=== PATIENT | male | born 1935 | race Caucasian/White ===

== ENCOUNTER 2017-04-28 14:48 | Emergency (ER) | payer MEDICARE, OTHER ==
[~2017-04-28] VITALS: Ht 167.6 cm; Wt 97.1 kg
[~2017-04-28 14:48] MED LIST: ACETAMINOPHEN-1 EAC1 PO; ACID CONTROL20 MG PO; ADVAIR 100-501 EACH INH; ADVAIR 250-501 EACH; AGGRENOX 25 MG1 EACH; AGGRENOX 25 MG1 EACH PO; AGGRENOX CAPSU1 EACH PO; ALBUTEROL2.5 MG/0.5; ALEVE220 M1; ALEVE220 M1 PO; ALLOPURINOL 10100 M1 PO; AMLODIPINE BESY10 MG PO; AMLODIPINE BESYL5 MG PO; APAP500 PO; ASPIR 8181 MG PO; ASPIRIN325 PO; AUGMENTIN 500-1 EACH PO; AUGMENTIN 875-1 EACH PO; AUGMENTIN 875875 M1 PO; AUGMENTIN 875875 MG PO; AZITHROMYCIN 2250 MG PO; BACTRIM DS TAB1 EACH PO; BISACODYL SUPP10 MG RECTAL; COLACE 100 MG100 MG PO; COLACE100 MG PO; COUMADIN 3 MG TA3 M1 PO; COUMADIN 4 MG TA4 M1 PO; DALIRESP500 MCG PO; DIABETA 5MG TABL5 MG; DIABETA 5MG TABL5 MG PO; DOXYCYCLINE 10100 MG PO; DUONEB 2.5-0.5 M3 ML; DUONEB 2.5-0.5 M3 ML INH; ELIQUIS2.5 MG PO; ENOXAPARIN80 MG/0.1 SUBQ; FAMOTIDINE 20 M20 MG PO; FAMOTIDINE PO; FAMOTIDINE20 MG PO; GABAPENTIN 100100 MG PO; GLYBURIDE 5 MG T5 M1 PO; HUMALOG100 UNIT/1 SUBQ; HYDROCODON-ACE1 EAC7 PO; HYDROCODONE-AP1 EAC6 PO; IBUPROFEN 800800 M1 PO; K-DUR 20 MEQ T20 MEQ PO; KEFLEX250 M1 PO; KEFLEX250 MG PO; KEFLEX500 M1 PO; KEFLEX500 MG PO; KETOCONAZOLE60 GM TP; LANTUS; LANTUSSOLASTAR SUBQ; LASIX 20 MG TAB20 MG PO; LEVAQUIN 250 M250 MG PO; LEVAQUIN 500 M500 M2 PO; LEVAQUIN 750 M750 MG PO; LEVEMIR SUBQ; LISINOPRIL10 MG PO; LOPERAMIDE 2 MG2 M1 PO; LOPRESSOR100 M1 PO; LOPRESSOR50 MG PO; LOPRESSOR50 PO; MEDROLDOSEPACK PO; MICARDIS40 MG; MICARDIS40 MG PO; MINOCIN100 MG; MINOCIN100 MG PO; MINOCYCLINE HC100 MG PO; MOBIC7.5 MG PO; MUCINEX600 MG PO; NITROGLYCERIN0.4 MG SUBLING; NORCO 5-325 TA1 EACH PO; NORVASC 5 MG TAB5 MG PO; NORVASC5 MG PO; NOVOLOG100 UNIT/1 SUBQ; ONDANSETRON HCL4 M2 PO; PEPCID AC20 M1; PEPCID20 MG PO; PLAVIX 75 MG TA75 M1 PO; PRAVACHOL40 MG PO; PREDNISONE 10 M10 M1 PO; PREDNISONE 10 M10 MG; PREDNISONE 10 M10 MG PO; PREDNISONE 20 M20 M1 PO; PREDNISONE 20 M20 MG PO; PROBIOTIC1 EAC1 PO; PROTONIX40 M1 PO; REQUIP 1 MG TABL1 M1 PO; ROBAXIN 750 MG750 M1 PO; SECURA ANTIFUNG57 GM TP; SERTRALINE HCL50 MG PO; SIMVASTATIN40 MG PO; SINGULAIR 10 MG10 M1 PO; TYLENOL325 MG PO; ZETIA10 MG PO; ZOCOR40 MG PO; ZOFRAN ODT4 MG PO; ZOLOFT 50 MG TA50 M1 PO; ZOLOFT50 MG PO; ZPAK PO; [UNRECOGNIZED DRUG - SUPPLY] MC
[2017-04-28 15:25] LABS: URINE BILIRUBIN NEGATIVE (Negative); URINE BLOOD TRACE (Negative); URINE CLARITY CLEAR; URINE COLOR YELLOW; URINE GLUCOSE-RANDOM TRACE (Negative); URINE KETONES NEGATIVE (Negative); URINE LEUKOCYTES-REFLEX NEGATIVE (Negative); URINE NITRITE-REFLEX NEGATIVE (Negative); URINE PROTEIN 2+ (Negative); URINE SPECIFIC GRAVITY 1.025 (1.005-1.030); URINE UROBILINOGEN 0.2 E.U./dl (0.2-1.0)
[2017-04-28 15:33] LABS: HEMATOCRIT 32.1 % (42.0-52.0); MCH 20.1 pg (26.0-34.0); MCHC 31.1 g/dL (28.0-37.0); MCV 64.7 fL (80.0-100.0); MPV 8.6 fl. (7.2-11.1); NUCLEATED RBCS 0 /100WBC; PLATELET COUNT* 227 thou/uL (150-400); RBC 4.96 mil/uL (4.50-6.00); RDW-CV 21.1 % (10.5-14.5); WBC 9.7 thou/uL (4.0-11.0)
[2017-04-28 15:33] LABS: SQUAMOUS 4-10 Moderate /LPF (0-3)
[2017-04-28 15:34] LABS: BACTERIA-REFLEX None Seen /HPF (None Seen); CASTS None Seen /LPF (None Seen); CRYSTALS None Seen /LPF (None Seen); MUCUS 4-6 Moderate strn/LPF (None Seen); URINE RBC None Seen /HPF (0-2); URINE WBC-REFLEX None Seen /HPF (0-5)
[2017-04-28 15:40] LABS: ANION GAP 11 mmol/L (7-16); BUN 31 mg/dL (7-18); CALCIUM 8.4 mg/dL (8.5-10.1); CHLORIDE 108 mmol/L (98-107); CO2 24 mmol/L (21-32); CREATININE 1.6 mg/dL (0.6-1.3); GLUCOSE 349 mg/dL (70-99); SODIUM 143 mmol/L (136-145)
[2017-04-28 15:52] LABS: ABSOLUTE LYMPHOCYTES 0.6 thou/uL (0.8-5.3); ABSOLUTE MONOCYTES 0.2 thou/uL (0.0-1.2); ABSOLUTE NEUTROPHILS 8.9 thou/uL (1.6-8.1); ALBUMIN 2.9 g/dL (3.4-5.0); ALKALINE PHOSPHATASE 75 U/L (46-116); ANISOCYTOSIS 2+; ATYPICAL LYMPHS 2 %; HYPOCHROMASIA 2+; MICROCYTES 2+; NT-PRO BRAIN NAT PEPTIDE 4227 pg/mL (<300); PLATELET ESTIMATE ADEQUATE; SGOT 12 U/L (15-37); SGPT 22 U/L (30-65); TOTAL BILIRUBIN 0.3 mg/dL (<0.1-1.0); TOTAL PROTEIN 6.3 g/dL (6.4-8.2); TROPONIN-I LEVEL <0.06 ng/mL (<0.06)
[2017-04-28 17:06] VITALS: BP 131/56
--- NOTE | 2017-04-29 13:11 | EKG ---
[place] [address] ELECTROCARDIOGRAM REPORT Name: VERONA WILLSON [id number] Admission: 04/28/17 Attend Phys: Discharge: 04/28/17 Date of : 31 Report #: [id number] THIS REPORT FOR: //name// [facility] ED Test Date: 2017-04-28 Test Time: 15:28:31 Pat Name: VERONA WILLSON Department: Room: Gender: M Pollution Control Technician: DIONNE : 1935 Requested By: Shanna Hope Order Number: [id number] MD: Donell Medeiros Measurements Intervals [place] Rate: 93 P: 50 FL: 165 QRS: -27 QRSD: 91 T: 83 QT: 405 QTc: 504 Interpretive Statements Sinus rhythm Borderline left axis deviation Borderline repolarization abnormality Prolonged QT interval Compared to ECG 03/30/2017 13:46:38 ST (T wave) deviation no longer present Electronically Signed On 04-29-2017 13:11:36 ENGINEERING PROJECT MANAGER by Donell Medeiros [email or web address] <ELECTRONICALLY SIGNED> By: Donell Medeiros MD, [facility] 04/29/17 1311 1528 1528 Donell Medeiros MD, [facility] /EPI
== END 2017-04-28 17:00 | disposition home or self-care (01) ==
LOC: M.ERS 14:48
PROVIDERS: Personal Emergency Response Attendant
DX: J44.9 Chronic obstructive pulmonary disease, unspecified (principal); E11.51 Type 2 diabetes mellitus with diabetic peripheral angiopathy without gangrene; I25.10 Atherosclerotic heart disease of native coronary artery without angina pectoris; E11.9 Type 2 diabetes mellitus without complications; I10 Essential (primary) hypertension; I48.91 Unspecified atrial fibrillation; F17.210 Nicotine dependence, cigarettes, uncomplicated; Z86.73 Personal history of transient ischemic attack (TIA), and cerebral infarction without residual deficits; Z86.718 Personal history of other venous thrombosis and embolism; Z79.4 Long term (current) use of insulin; Z88.1 Allergy status to other antibiotic agents; Z88.6 Allergy status to analgesic agent

== ENCOUNTER 2017-05-22 14:49 | Inpatient (IN) | payer MEDICARE, OTHER ==
[~2017-05-22] VITALS: Ht 167.6 cm; Wt 111.2 kg
[2017-05-22 14:50] VITALS: BP 130/56
[2017-05-22 15:24] LABS: HEMATOCRIT 34.3 % (42.0-52.0); HEMOGLOBIN 10.5 gm/dL (14.0-18.0); MCH 19.4 pg (26.0-34.0); MCHC 30.6 g/dL (28.0-37.0); MCV 63.4 fL (80.0-100.0); MPV 8.6 fl. (7.2-11.1); NUCLEATED RBCS 0 /100WBC; PLATELET COUNT* 210 thou/uL (150-400); RBC 5.41 mil/uL (4.50-6.00); WBC 9.8 thou/uL (4.0-11.0)
[2017-05-22 15:32] LABS: APTT 27.8 Seconds (25.0-31.3); INR 1.1; PROTIME 10.6 Seconds (9.20-11.50)
[2017-05-22 15:34] LABS: CALCIUM 8.4 mg/dL (8.5-10.1); CREATININE 1.7 mg/dL (0.6-1.3); POTASSIUM 4.2 mmol/L (3.5-5.1)
[2017-05-22 15:46] LABS: ABSOLUTE BASOPHILS 0.1 thou/uL (0.0-0.2); ABSOLUTE LYMPHOCYTES 0.3 thou/uL (0.8-5.3); ABSOLUTE MONOCYTES 0.5 thou/uL (0.0-1.2); ABSOLUTE NEUTROPHILS 8.9 thou/uL (1.6-8.1); PLATELET ESTIMATE ADEQUATE
[2017-05-22 15:47] LABS: ANISOCYTOSIS 2+; HYPOCHROMASIA 3+; MICROCYTES 3+
[2017-05-22 15:48] LABS: MAGNESIUM 1.6 mg/dL (1.8-2.4); TOTAL BILIRUBIN 0.3 mg/dL (<0.1-1.0); TOTAL PROTEIN 6.7 g/dL (6.4-8.2); TROPONIN-I LEVEL 0.08 ng/mL (<0.06)
[2017-05-22 15:49] LABS: OVALOCYTES Occasional
--- NOTE | 2017-05-22 16:29 | EKG ---
[place] [address] ELECTROCARDIOGRAM REPORT Name: VERONA WILLSON Room: [facility]#: [id number] Admission: 05/22/17 Attend Phys: Discharge: Date of : 31 Report #: [id number] THIS REPORT FOR: //name// [facility] ED Test Date: 2017-05-22 Test Time: 14:58:36 Pat Name: VERONA WILLSON Department: Room: Gender: Cloud Software Engineer: Yoanna LOWRY : 1935 Requested By: Zenon Cheung Order Number: [id number] MD: Juan Hastings Measurements Intervals [place] Rate: 104 P: 65 DE: 161 QRS: -25 QRSD: 95 T: 100 QT: 366 QTc: 482 Interpretive Statements Sinus tachycardia Multiple ventricular premature complexes Borderline left axis deviation Borderline repolarization abnormality Borderline prolonged QT interval Compared to ECG 04/28/2017 15:28:31 Ventricular premature complex(es) now present Sinus rhythm no longer present Electronically Signed On 05-22-2017 16:28:57 SUPERVISOR VAT HOUSE by Juan Hastings [email or web address] <ELECTRONICALLY SIGNED> By: Juan Hastings MD, [facility] 05/22/17 1628 1458 1458 Juan Hastings MD, [facility] /EPI
--- NOTE | 2017-05-22 18:14 | NUR ---
PROVIDER MADE AWARE OF SKIN TEAR ON R FOREARM. EVALUATED SKIN TEAR AND SPOKE WITH PT AND FAMILY. APPAREL CUTTER OCTAVIO Dacosta MADE AWARE OF FAMILY'S CONCERNS AND SPOKE WITH FAMILY.
[2017-05-22 18:34] VITALS: BP 145/63
[2017-05-22 18:38] VITALS: BP 130/79
[2017-05-22 20:00] VITALS: BP 145/63; BP 82/40
[2017-05-23] VITALS (18 sets, daily range): BP systolic 75–143; BP diastolic 37–68
--- NOTE | 2017-05-23 03:38 | NUR ---
PATIENT RESTING WITHOUT COMPLAINTS. CONT. 02 PER NC, VSS, ABX WITHOUT ADVERSE REACTION NOTED. WILL CONT. TO MONITOR RESP STATUS. NO SIGNS OF PAIN OR DISCOMFORT. BED IN LOW POSITION, CALL LIGHT WITHIN REACH. BED ALARM ON, CONT. WITH PLAN OF CARE AT THIS TIME.
--- NOTE | 2017-05-23 08:00 | NUR ---
AM ASSESSMENT COMPLETED REFER TO COMPUTER CHARTING. VALVE SEATER OPERATOR TRACKING SR. PATIENT RESTING IN BED REPORTING NO PAIN, NAUSEA AT THAT TIME. BED IN LOW AND LOCKED POSITION. CALL LIGHT WITHIN REACH. IV ANTIBIOTIC INFUSING. PATIENT ON 2 LITERS VIA NASAL CANNULA WITH O2 SATS READING 95%. AT 1000 THIS NURSE WAS TALKING TO DAUGHTER OF PATIENT ON THE PHONE AND LOOKED AT VALVE SEATER OPERATOR WHEN THEY STARTED TO ALARM AND WENT INTO PATIENT ROOM. CODE BLUE ACTIVATED AND DR GODWIN ON UNIT. POST CODE PATIENT TRANSFERED TO ROOM 04 IN ICU, REPORT CALLED TO ANTONIETTA WILKINS.
[2017-05-23 10:29] LABS: BE -9.9 mmol/L (-2 to +3); PO2 93.2 mmHg (75.0-100.0)
[2017-05-23 10:37] LABS: PCO2 130.8 mmHg (35.0-45.0)
[2017-05-23 10:47] LABS: HEMATOCRIT 39.3 % (42.0-52.0); HEMOGLOBIN 10.7 gm/dL (14.0-18.0); MCH 19.2 pg (26.0-34.0); MCHC 27.3 g/dL (28.0-37.0); RBC 5.56 mil/uL (4.50-6.00); RDW-CV 21.6 % (10.5-14.5)
[2017-05-23 10:48] LABS: MCV 70.6 fL (80.0-100.0)
[2017-05-23 10:59] LABS: CALCIUM 8.5 mg/dL (8.5-10.1); CREATININE 2.7 mg/dL (0.6-1.3); POTASSIUM 4.4 mmol/L (3.5-5.1)
[2017-05-23 11:02] LABS: ALBUMIN 2.5 g/dL (3.4-5.0); TOTAL BILIRUBIN 0.2 mg/dL (<0.1-1.0); TOTAL PROTEIN 5.8 g/dL (6.4-8.2); TROPONIN-I LEVEL 0.14 ng/mL (<0.06)
[2017-05-23 11:56] LABS: BE -7.6 mmol/L (-2 to +3); HCO3 18.9 mmol/L (22.0-26.0); PCO2 42.2 mmHg (35.0-45.0)
[2017-05-23 12:16] LABS: PO2 225.8 mmHg (75.0-100.0); pH 7.268 (7.340-7.450)
--- NOTE | 2017-05-23 14:20 | NUR ---
PATIENT TRANSFERED TO ROOM 004 FROM TELE POST CODE. UPON ARRIVING EKG COMPLETED AND RESULTED A-FIB WITH A TACHY RATE. NON-RESPONSIVE AND INTUBATED. FENTANYL AND VERSED GTT ADDED PATIENT WAS MAKING JERKING MOVEMENTS AND FIGHTING THE VENTILATOR. BICARB IN D5W AND INSULIN GTT IN PLACE PER DR GODWIN, CVP AND 2 MORE LITER BOLUSES ON BOARD FOR SEPSIS PROTOCOL. LACTIC SENT AND RESULTED 7.4. COMMUNICATED TO DR HILLIARD, WHO IS ON THE FLOOR. UA SENT AND IS PENDING. ABLE TO TITRATE FIO2 FROM %80 TO %[address] HILLIARD HAVING THOUROUGH DISCUSSION WITH PATIENT'S DAUGHTER. SHE WANTED TO MAKE SURE PATIENT HAD DNR PAPERWORK IN THE CHART. WHEN ASKED IF SHE WOULD LIKE HIM TO BE FULL CODE AT THIS TIME, SHE DECIDED TO KEEP FULL CODE. WILL CONTINUE WITH CURRENT PLAN OF CARE.
[2017-05-23 14:28] LABS: URINE BILIRUBIN NEGATIVE (Negative); URINE BLOOD 2+ (Negative); URINE CLARITY SL CLOUDY; URINE COLOR YELLOW; URINE GLUCOSE-RANDOM 2+ (Negative); URINE KETONES NEGATIVE (Negative); URINE LEUKOCYTES-REFLEX NEGATIVE (Negative); URINE NITRITE-REFLEX NEGATIVE (Negative); URINE PROTEIN 3+ (Negative); URINE SPECIFIC GRAVITY 1.025 (1.005-1.030); URINE UROBILINOGEN 0.2 E.U./dl (0.2-1.0)
[2017-05-23 14:39] LABS: AMORPHOUS URATES Many /LPF (None Seen); BACTERIA-REFLEX 1-9 Few /HPF (None Seen); HYALINE CASTS 0-3 Few /LPF (None Seen); SQUAMOUS NONE SEEN /LPF (0-3); URINE RBC 3-10 Few /HPF (0-2); URINE WBC-REFLEX None Seen /HPF (0-5)
--- NOTE | 2017-05-23 15:21 | NUR ---
PT ADMITTED YESTERDAY, CODED THIS MORNING AND IS NOW IN ICU ON VENT. ASKED TO COME TALK TO DTR SHE IS UPSET THAT PT WAS NOT A DNR, HE HAS BEEN IN PAST ADMISSIONS. SPOKE WITH DR. GODWIN, HE SAID HE SPOKE WITH THE DTR TWICE THIS MORNING DURING THE CODE AND SHE NEVER TOLD HIM TO STOP THE CODE, THAT THE PT WANTED TO BE A DNR. SPOKE WITH DTRosalinda BOSWELL AT BEDSIDE. SHE SAID WHEN PT COMPLETED HIS ADVANCE DIRECTIVE YEARS AGO, SHE WAS TOLD IT WOULD ALWAYS BE HERE ON HIS CHART AND SHE DOESN'T UNDERSTAND WHY THE PT WASN'T A DNR THIS ADMISSION. EXPLAINED THAT AN ADVANCE DIRECTIVE IS NOT A DNR ORDER, THE FORM OUTLINES WHAT THE PTS WISHES ARE, BUT IT TAKES A PHYSICIAN ORDER EACH AND EVERY ADMISSION FOR A CODE STATUS. SHE SAID WITH PREVIOUS ADMISSIONS, 'THEY COME PUT THAT PURPLE ARMBAND ON THAT HE IS A DNR, I DIDN'T REALIZE IT HADN'T HAPPENED THIS TIME.' SHE SAID HER BROTHER WAS HERE EARLIER, THEY HAVE TALKED AND FOR NOW THEY WANT PT TO BE A FULL CODE. ' LONG WE HAVE STARTED THIS, WE NEED TO SEE WHAT HAPPENS.' ASKED HER TWICE MORE DURING THE DISCUSSION IF THEY WANTED THEIR FATHER TO BE A FULL CODE-- OR TO CONTINUE ALL OF WHAT IS BEING DONE BUT HAVE HIM BE A DNR. SHE SAID EACH TIME THEY WANT HIM TO BE A FULL CODE AND THEY WANT EVERYTHING DONE. I TOLD HER IF AT ANYTIME THE FAMILY CHANGED THEIR MIND, THE NURSES OR DOCTOR WOULD BE GLAD TO TALK TO THEM. YU HAS A COPY OF THE ADVANCE DIRECTIVE WITH HER AND IS AWARE THAT HER BROTHER JERSON IS THE DPOA. UPDATED NURSE AFTER MY DISCUSSION WITH YU.
--- NOTE | 2017-05-23 16:16 | NUR ---
PATIENT LACTIC NOW 4.3. IMPROVED FROM LAST DRAW. DR HILLIARD NOTIFIED.
--- NOTE | 2017-05-23 17:21 | 2DMMODE ---
[place] [address] 2 D/M-MODE ECHOCARDIOGRAM Name: VERONA WILLSON Room: [address] IN [facility]#: [id number] Admission: 05/22/17 Attend Phys: Mark Anthony Orozco Discharge: Date of : 31 Date of Service: 05/23/17 1721 Report #: [id number] THIS REPORT FOR: //name// APPROVED REPORT Study performed: 05/23/2017 14:41:38 EXAM: Comprehensive 2D, Doppler, and color-flow Echocardiogram Patient Location: In-Patient Room #: [facility] Status: routine BSA: 2.11 HR: 98 bpm BP: 107/47 mmHg Rhythm: NSR Other Information Study Quality: Good Indications Congestive Heart Failure 2D Dimensions LVEF(%): 71.58 (>50%) IVSd: 13.68 (7-11mm) LVOT Diam: 18.34 (18-24mm) LVDd: 46.56 mm PWd: 11.16 (7-11mm) Ascending Ao: 37.13 (22-36mm) LVDs: 27.58 (25-40mm) Aortic Root: 35.18 mm Lazcano's LVEF: 71.58 % Volumes Left Atrial Volume (Systole) LA ESV Index: 29.60 mL/m2 Aortic Valve AoV Peak Marck.: 2.57 m/s AO Peak Gr.: 26.35 mmHg LVOT Max P.17 mmHg AO Mean Gr.: 14.97 mmHg LVOT Mean P.51 mmHg LVOT Max V: 1.14 m/s AO V2 VTI: 49.31 cm LVOT Mean V: 0.72 m/s KITTY (VTI): 1.17 cm2 LVOT V1 VTI: 21.83 cm Mitral Valve E/A Ratio: 0.92 [place] [address] 2 D/M-MODE ECHOCARDIOGRAM Name: VERONA WILLSON Room: [address] IN .R.#: [id number] Admission: 05/22/17 Attend Phys: Mark Anthony Orozco Discharge: Date of : 31 Date of Service: 05/23/17 1721 Report #: [id number] MV Decel. Time: 180.30 ms MV E Max Marck.: 1.23 m/s MV PHT: 52.29 ms MVA (PHT): 4.21 cm2 TDI E/Lateral E': 12.30 E/Medial E': 20.50 Medial E' Marck.: 0.06 m/s Lateral E' Marck.: 0.10 m/s Pulmonary Valve PV Peak Marck.: 1.13 m/s PV Peak Gr.: 5.14 mmHg Left Ventricle The left ventricle is normal size. There is normal LV segmental wall motion. Mild concentric left ventricular hypertrophy. Left ventricular systolic function is normal. LVEF is 55-60%. Grade I - abnormal relaxation pattern. Right Ventricle Right ventricle is mildly dilated. The right ventricular systolic function is normal. Atria Left atrium is mildly dilated. Right atrium is mildly dilated. Aortic Valve Moderate aortic valve sclerosis. No aortic regurgitation is present. Moderate aortic stenosis. Mitral Valve There is mitral annular calcification. There is no mitral valve regurgitation noted. No evidence of mitral valve stenosis. Tricuspid Valve The tricuspid valve is not well visualized. Unable to assess PA pressure. Trace tricuspid regurgitation. Pulmonic Valve Pulmonic valve is not well visualized. Mild pulmonic regurgitation. Great Vessels The aortic root is normal in size. IVC is normal in size and collapses with >50% [place] [address] 2 D/M-MODE ECHOCARDIOGRAM Name: VERONA WILLSON Room: [address]#: [id number] Admission: 05/22/17 Attend Phys: Mark Anthony Orozco Discharge: Date of : 31 Date of Service: 05/23/17 1721 Report #: [id number] Pericardium There is no pericardial effusion. <Conclusion> The left ventricle is normal size. Mild concentric left ventricular hypertrophy. Left ventricular systolic function is normal. LVEF is 55-60%. Grade I - abnormal relaxation pattern. Right ventricle is mildly dilated. Left atrium is mildly dilated. Right atrium is mildly dilated. Moderate aortic valve sclerosis. Moderate aortic stenosis. There is mitral annular calcification. Mild pulmonic regurgitation. <ELECTRONICALLY SIGNED> By: Juan Hastings MD, [facility]ACC 05/23/171720 20 20 Juan Hastings MD, FACC /INF
--- NOTE | 2017-05-23 17:25 | NUR ---
PATIENT PROGRESSING TOWARDS GOALS. TITRATED OFF LEVOPHED AT 1650. REMAINS SEDATED ON VENTILATOR WITH VERSED AT 12 ML/HR (6MG/HR) AND FENTANYL AT 2.5 ML/HR (25 MCG/HR). ATTEMPTED TO TITRATE OFF SEDATION BRIEFLY, BUT PATIENT RESPIRATIONS INCREASED TO 40S. PATIENT NOW TRACING NSR IN HIGH 90S. DAUGHTER AND SON PRESENT AT TIMES, HAVE LEFT FOR THE NIGHT. LEAVING PATIENT FULL CODE FOR NOW AND WILL REASSESS TOMORROW.
[2017-05-23 18:18] LABS: CALCIUM 7.4 mg/dL (8.5-10.1); CREATININE 2.6 mg/dL (0.6-1.3); POTASSIUM 3.6 mmol/L (3.5-5.1)
--- NOTE | 2017-05-23 23:38 | NUR ---
RHTYHM CHANGE NOTED ON COVERING AND LINING SUPERVISOR, EKG OBTAINED SHOWING SINUS RHYTHM WITH MULTIPLE ATRIAL AND VENTRICULAR ECTOPIC BEATS. NO ADVANCED HEART BLOCK DETECTED. RADIAL PULSE 2+. PTS RATE NOW RETURNED TO REGULAR SINUS RHYTHM.
[2017-05-24] VITALS (21 sets, daily range): BP systolic 105–146; BP diastolic 43–76
[2017-05-24 04:57] LABS: HEMATOCRIT 28.1 % (42.0-52.0); MCH 19.4 pg (26.0-34.0); MCHC 30.7 g/dL (28.0-37.0); MPV 8.5 fl. (7.2-11.1); RBC 4.46 mil/uL (4.50-6.00); RDW-CV 20.9 % (10.5-14.5); WBC 10.2 thou/uL (4.0-11.0)
[2017-05-24 05:07] LABS: ALBUMIN 2.1 g/dL (3.4-5.0); CALCIUM 7.4 mg/dL (8.5-10.1); CREATININE 3.1 mg/dL (0.6-1.3); POTASSIUM 3.4 mmol/L (3.5-5.1); TOTAL BILIRUBIN 0.2 mg/dL (<0.1-1.0); TOTAL PROTEIN 4.8 g/dL (6.4-8.2)
[2017-05-24 05:24] LABS: HEMOGLOBIN 8.6 gm/dL (14.0-18.0); MCV 63.2 fL (80.0-100.0)
--- NOTE | 2017-05-24 07:30 | NUR ---
PT REMAINS SEDATED ON VENTILATOR. VSS WITHOUT PRESSORS. O2 SAT HAS REMAINED >95%. INSULIN GTT TITRATED ORDERED, HOURLY BG HAS REMAINED 95-115. POTASSIUM LEVEL 3.4 THIS AM, RESULT CALLED TO DR HILLIARD AND ORDERS RECEIVED FOR ELECTROLYTE REPLACEMENT PROTOCOL AND TO INCREASE IVF RATE TO 175ML/HR. DR HILLIARD INFORMED THAT PTS BG HAS NORMALIZED, HE STATED HE WILL ADDRESS WHETHER TO CONTINUE WITH INSULIN GTT OR CHANGE TO PTS HOME SUBQ INSULIN REGIMEN WHEN HE ARRIVES TO THE UNIT THIS AM. COMPLETE BED BATH GIVEN. SKIN TEAR TO RIGHT FOREARM AND HEALING BLISTERS TO RIGHT CASIANO PHOTOGRAPHED FOR CHART, WOUNDS CLEANED AND REDRESSED. PT HAS BEEN TURNED Q2HR THROUGHOUT THE SHIFT.
[2017-05-24 07:54] LABS: BE 1.9 mmol/L (-2 to +3); PCO2 38.6 mmHg (35.0-45.0); PO2 82.1 mmHg (75.0-100.0); pH 7.446 (7.340-7.450)
--- NOTE | 2017-05-24 08:00 | NUR ---
INITIAL ASSETMENT COMPLETED. PT REMAINS SEDATED ON VENT. INSULIN GTT REMIANS IN USE.SON IN ROOM UPDATED ON CARE PLAN. DR DC IN ROOM. ABG RESULTS OBTAINED AND WITHDR AWARE.
--- NOTE | 2017-05-24 08:30 | CON ---
[address] [address] CONSULTATION Name: VERONA WILLSON Room: [address] IN .R.#: [id number] Admission: 05/22/17 Attend Phys: Fanny Stout Discharge: Date of : 33 Report #: [id number] THIS REPORT FOR: //name// CC: Anjel Orozco REASON FOR CONSULTATION: Acute respiratory failure. HISTORY OF PRESENT ILLNESS: The patient is an 82-year-old male patient with history of COPD, on 2 L oxygen per his daughter. He was admitted to the hospital on 05/22/2017 with chief complaints of shortness of breath of 3 weeks' duration associated with cough, congestion and dyspnea. Per the daughter, they checked his oxygen at home yesterday. It was in the upper 80s on room air and he was brought into the ER. Also, he had some confusion per the history upon hospitalization and poor oral intake. This morning, he was on 2 L oxygen and some arrhythmia noted in the monitor. When his nurse checked him in the munguia, he was unresponsive and he was in PEA. A code blue was called and resuscitation was started. He was intubated and had a spontaneous circulation and was brought into the ICU. I saw the patient in the ICU. He was intubated already on the ventilator. He is not on any vasopressors, but he is about to start on bicarb drip and insulin drip. His sugar readings were really high. He is not responsive, but he was overbreathing the vent and breathing fast and obviously did not participate in history due to medical condition. REVIEW OF SYSTEMS: Non-obtainable due to the patient's condition. ALLERGIES: NEOMYCIN AND VANCOMYCIN. HOME MEDICATIONS: He is on Zetia, Zoloft, guaifenesin, Lasix, Protonix, allopurinol, Advair, Nitrostat, DuoNeb, pravastatin, Eliquis twice a day, prednisone 10 mg daily, insulin. PAST MEDICAL HISTORY: Chronic respiratory failure, on home oxygen and he is steroid dependent 10 mg daily prednisone with a history of CVA, coronary artery disease, diabetes mellitus, hypertension, and peripheral vascular disease. PAST SURGICAL HISTORY: Includes left forearm amputation from war injury. He had history of interstitial lung disease, COPD, chronic respiratory failure, previous history of DVT and p.r.n. anticoagulation, history of AFib. FAMILY HISTORY: Positive for COPD. SOCIAL HISTORY: He continues to smoke every day. No mention of alcohol [place] [address] CONSULTATION Name: VERONA WILLSON Room: [address] IN [facility]#: [id number] Admission: 05/22/17 Attend Phys: Fanny Stout Discharge: Date of : 31 Report #: [id number] PHYSICAL EXAMINATION: VITAL SIGNS: He was on 80% FIO2, O2 saturation 100%, blood pressure 136/64 off vasopressors, pulse rate of 98, afebrile. GENERAL: Overweight gentleman, lying in bed, intubated, started on fentanyl, unresponsive, but overbreathing the vent. HEENT: Head normocephalic, atraumatic. Pupils reactive to light. Not pale, no jaundice. External ears look healthy any normal. Oral cavity intubated with gastric tube in place. Nasal cavity patent. NECK: Supple. CHEST: Diminished air movement bilaterally, prolonged expiratory phase with wheezes heard bilaterally and some crackles at the bases. No chest deformity. HEART: S1, S2, no murmur. ABDOMEN: Obese, soft, lax, nontender, slightly distended, no masses felt. EXTREMITIES: Lower extremity, trace edema. No signs of DVT, no calf tenderness, but again, he is unresponsive. SKIN: Normal for age and race. MUSCULOSKELETAL: On inspection, he has amputation of the left upper forearm. Otherwise, no abnormalities. PSYCHIATRIC: Mood and affect could not be evaluated. NEUROLOGIC: Unresponsive as mentioned above. LYMPHATICS: No palpable lymph node. LABORATORY DATA: His chest x-ray upon hospitalization relatively stable compared to previous chest x-ray, but showing interstitial lung disease. His chest x-ray post-intubation showed ET tube in good place. His ABGs during the cardiac arrest was 6.9/ /93. On ambu bag, his white blood count was 9.8 yesterday, today is 19, hemoglobin is 10.7 and platelets of 210 today. His creatinine is 2.7, was 1.7 upon hospitalization. His carbon dioxide 22, potassium 4.4. His sugar is more than 500. IMPRESSION: 1. Ivawg-xa-gjrrycq hypoxic and hypercapnic respiratory failure. 2. Chronic obstructive pulmonary disease exacerbation. 3. Interstitial lung disease. 4. Status post cardiac arrest. 5. Active smoker. 6. Hyperglycemia. 7. History of deep venous thrombosis and pulmonary embolism in the past. Daughter was present in the ICU. She confirms and she is very sure that he did not miss a single dose of his anticoagulation at home. He was continued on his anticoagulation at this facility. My suspicion for pulmonary embolus at this point is low given the fact that there are no gaps on him taking his anticoagulation. Unfortunately, we cannot do CT of the chest given the kidney function, but we will do a Doppler ultrasound of the lower extremities. He is [facility] [address] [place] [address] CONSULTATION Name: VERONA WILLSON Room: [address] IN .R.#: [id number] Admission: 05/22/17 Attend Phys: Fanny Stout Discharge: Date of : 33 Report #: [id number] wheezing on exam. I would continue the steroids, continue the antibiotics. He will be on a scheduled nebulization treatment. We will do a repeat chest ABGs at this point. So far on his blood work is mostly respiratory acidosis, his lactic acid is pending and his bicarbonate on the BMP is 22. Depending on his next ABG, we will decide what bicarb drip. It is not clear, but consider cardiac arrest at this point. Cardiology is evaluating the patient at this point and will place him on sedation and once he is more stable, we will turn off the sedation and evaluate his mental status and decide about weaning trials. CONDITION: Critical. PROGNOSIS: Guarded. Thank you for the consult. <ELECTRONICALLY SIGNED> By: Clyde Novak MD 05/24/17 0830 1146 1902Dmathew Johnson MD /nt
--- NOTE | 2017-05-24 10:44 | CON ---
[address] [address] CONSULTATION Name: VERONA WILLSON Room: [address] IN .R.#: [id number] Admission: 05/22/17 Attend Phys: Fanny Stout Discharge: Date of : 31 Report #: [id number] THIS REPORT FOR: //name// CC: Anjel Larissamatthew Mark Anthony Orozco DATE OF SERVICE: 05/23/2017 ATTENDING PHYSICIAN: Mark Anthony Orozco DO. REASON FOR EVALUATION: Aspiration pneumonitis, complicated by respiratory arrest, now on mechanical ventilatory support. HISTORY OF PRESENT ILLNESS: Chart reviewed, the patient examined. This is an 82-year-old gentleman, I am familiar with his extensive medical history, diabetes mellitus has been complicated by vasculopathy including previous strokes, coronary artery disease, peripheral vascular disease, also has some underlying chronic obstructive pulmonary disease, who is frequently admitted, having last seen him in 2016. He was admitted due to some progressive dyspnea with associated cough, notably has 2 liters per O2 at night time. He was encephalopathic as well, has shown some anorexia with poor p.o. intake. He apparently on the floor experienced a cardiopulmonary arrest. He was resuscitated, transferred to the Intensive Care Unit. He is now on mechanical ventilatory support, but not particularly responsive. Chest x-ray shows extensive chronic changes, may well have an acute component as well. He was empirically started on ceftriaxone, levofloxacin and azithromycin. ALLERGIES: NEOMYCIN, VANCOMYCIN. MEDICATIONS: Include levofloxacin, pantoprazole, methylprednisolone, propofol, sertraline, ceftriaxone, atorvastatin, ezetimibe, and azithromycin. PAST MEDICAL HISTORY: Has diabetes mellitus complicated by vasculopathy, known coronary artery disease, previous stroke with right-sided weakness, hypertension, peripheral vascular disease, traumatic amputation of his left hand dates back during service, chronic obstructive pulmonary disease, suspected obstructive sleep apnea, history of DVTs and PE, atrial fibrillation. SOCIAL HISTORY: Does smoke cigarettes. No ethanol. No illicit drug use. FAMILY HISTORY: Noncontributory. REVIEW OF SYSTEMS: Not obtainable. PHYSICAL EXAMINATION: GENERAL: He appears chronically ill, undernourished. [place] [address] CONSULTATION Name: VERONA WILLSON Room: [address]#: [id number] Admission: 05/22/17 Attend Phys: Fanny Stout Discharge: Date of : 33 Report #: [id number] intubated. He is in supine position. VITAL SIGNS: Temperature 99.0, pulse 98, respirations 18, blood pressure is 136/64. SKIN: Warm, dry. NECK: Supple. LUNGS: Scattered coarse breath sounds. HEART: Tachycardic, regular. I do not appreciate a murmur. ABDOMEN: Quite distended, somewhat firm. There is a tympany. GENITOURINARY: Deferred. RECTAL: Deferred. LABORATORY DATA: Most recent ABGs, pH 7.268, pCO2 of 42.2, pO2 of 225.8, satting 88%. Chest x-ray as described above. Electrolytes: Sodium 141, potassium 4.4, chloride 104, bicarbonate is 22, anion gap of 18, BUN and creatinine 32 and 2.7, that is actually up from 2.7, glucose of 595, AST 131, ALT of 124, albumin of 2.5, total protein 5.8, estimated GFR of 23. CBC: White count 19.0, H and H 10.7 and 39.3, platelets of 210. Blood cultures sterile thus far. Troponin is 0.07, repeat was less than 0.06. Lactic acid 1.9. ASSESSMENT: Cardiopulmonary arrest complicated by hypoxemia. I think it is reasonable to continue empiric antimicrobial therapy, presume pneumonitis at this point. Whether there is aspiration component seems possible as well. He remains critically ill. It is difficult to appreciate whether he will have any sort of rapid recovery at this point. Continue efforts to wean down support. <ELECTRONICALLY SIGNED> By: Apolinar Dixon MD 05/24/17 1044 1245 40Josara Dixon MD /nt
--- NOTE | 2017-05-24 11:00 | NUR ---
PT SEDATION VACATION DID NOT GO WELL. PT HEART RATE INCREASED UP TO 120'S WITH RESP RATE UPPER 30'S TO LOW 40'S. SEDATION MEDS RESTATED.
--- NOTE | 2017-05-24 14:29 | EKG ---
[place] [address] ELECTROCARDIOGRAM REPORT Name: VERONA WILLSON Room: [address] ADM IN M.R.#: [id number] Admission: 05/22/17 Attend Phys: Fanny Stout Discharge: Date of : 31 Report #: [id number] THIS REPORT FOR: //name// [facility] Test Date: 2017-05-23 Test Time: 10:37:17 Pat Name: VERONA WILLSON Department: Room: [address] Gender: M Obstetrics Teacher: Janee : 1935 Requested By: Mark Anthony Orozco Order Number: [id number] Reading MD: Jerrod Grimm Measurements Intervals [place] Rate: 108 P: 144 MA: 177 QRS: -85 QRSD: 133 T: 46 QT: 381 QTc: 511 Interpretive Statements atrial fibrillation RBBB and LAFB Borderline ST depression, lateral leads Compared to ECG 05/22/2017 14:58:36 Sinus tachycardia no longer present Ventricular premature complex(es) no longer present Electronically Signed On 05-24-2017 14:28:59 MARKER DELIVERY by Jerrod Grimm [email or web address] <ELECTRONICALLY SIGNED> By: Jerrod Grimm MD, FACC 05/24/17 1428 1037 1037 Jerrod Grimm MD, [facility] /EPI
--- NOTE | 2017-05-24 14:29 | EKG ---
[place] [address] ELECTROCARDIOGRAM REPORT Name: VERONA WILLSON Room: [address] ADM IN M.R.#: [id number] Admission: 05/22/17 Attend Phys: Fanny Stout Discharge: Date of : 31 Report #: [id number] THIS REPORT FOR: //name// [facility] Test Date: 2017-05-23 Test Time: 10:38:54 Pat Name: VERONA WILLSON Department: Room: [address] Gender: M Local Company Truck Driver: Janee : 1935 Requested By: Mark Anthony Orozco Order Number: [id number] Estefani MD: Jerrod Grimm Measurements Intervals [place] Rate: 108 P: NV: QRS: -98 QRSD: 130 T: 19 QT: 382 QTc: 512 Interpretive Statements Atrial fibrillation RBBB and LAFB Electronically Signed On 05-24-2017 14:29:32 HOME THERAPY TEACHER by Jerrod Grimm [email or web address] <ELECTRONICALLY SIGNED> By: Jerrod Grimm MD, [facility] 05/24/17 1429 [facility] 1038 Jerrod Grimm MD, FACC /EPI
--- NOTE | 2017-05-24 14:41 | EKG ---
[place] [address] ELECTROCARDIOGRAM REPORT Name: VERONA WILLSON Room: [address] ADM IN M.R.#: [id number] Admission: 05/22/17 Attend Phys: Fanny Stout Discharge: Date of : 31 Report #: [id number] THIS REPORT FOR: //name// [facility] Test Date: 2017-05-23 Test Time: 23:28:50 Pat Name: VERONA WILLSON Department: Room: [address] Gender: M Principal Software Engineer: Kim SHEA RN : 1935 Requested By: Mark Anthony Orozco Order Number: [id number] Estefani MD: Jerrod Grimm Measurements Intervals [place] Rate: 112 P: 31 VA: 153 QRS: -35 QRSD: 87 T: 162 QT: 379 QTc: 518 Interpretive Statements Sinus arrhythmia Multiple premature complexes, vent & supraven Left axis deviation Abnormal R-wave progression, late transition Nonspecific T abnormalities, lateral leads Prolonged QT interval Electronically Signed On 05-24-2017 14:41:38 GAS REGULATOR REPAIRER HELPER by Jerrod Grimm [email or web address] <ELECTRONICALLY SIGNED> By: Jerrod Grimm MD, [facility] 05/24/17 1441 [id number] Jerrod Grimm MD, [facility] /EPI
--- NOTE | 2017-05-24 14:42 | EKG ---
[place] [address] ELECTROCARDIOGRAM REPORT Name: VERONA WILLSON Room: [address] ADM IN M.R.#: [id number] Admission: 05/22/17 Attend Phys: Fanny Stout Discharge: Date of : 31 Report #: [id number] THIS REPORT FOR: //name// [facility] Test Date: 2017-05-23 Test Time: 23:34:22 Pat Name: VERONA WILLSON Department: Room: [address] Gender: M Laboratory Miller: Kim SHEA RN : 1935 Requested By: Mark Anthony Orozco Order Number: [id number] Estefani MD: Jerrod Grimm Measurements Intervals [place] Rate: 92 P: 3 DE: 110 QRS: -33 QRSD: 87 T: 162 QT: 396 QTc: 490 Interpretive Statements Sinus rhythm Borderline short DE interval Left axis deviation Abnormal R-wave progression, late transition Borderline repolarization abnormality Borderline prolonged QT interval Electronically Signed On 05-24-2017 14:42:31 CURATOR OF MANUSCRIPTS by Jerrod Grimm [email or web address] <ELECTRONICALLY SIGNED> By: Jerrod Grimm MD, [facility] 05/24/17 1442 [id number] Jerrod Grimm MD, [facility] /EPI
--- NOTE | 2017-05-24 15:53 | NUR ---
WOUND NURSE: PATIENT SEEN TO ADDRESS LESIONS NOTED ON RIGHT ANKLE AND FOREARM. PATIENT HAS 2 SMALL BLISTERS MEASURING 1.5 X 1.5 X 0.1 CM, CONTAIN PINK NONGRANULATING TISSUE IN THE WOUND BED, NO ACTIVE DRAINAGE, NO PERIWOUND REDNESS, WARMTH, OR INDURATION. DAUGHTER HERE AND REPORTS HOME HEALTH HAD BEEN USING XEROFORM GAUZE 3X/WEEK. AFFECTED AREA WAS CLEANSED WITH SOAP AND WATER, RINSED WITH WATER, THEN PATTED DRY. APPLIED XEROFORM GAUZE UNDER ABD, WRAPPED WITH KERLEX ROLL GAUE, AND SECURED WITH TAPE. RIGHT FOREARM SKIN TEAR WHICH DAUGHTER REPORTS OCCURED DURING TRANSFER IN THE ED. REMOVED DRESSING TO FIND SKIN TEAR MAINTAINED WITH STERISTRIPS AT TIME OF THIS ASSESSMENT. OPTED TO LEAVE THE STERISTRIPS IN PLACE, THEN CLEANSE WITH SOAP AND WATER, RINSED WITH WATER, THEN PATTED DRY. APPLIED OPTIFOAM GENTLE AG TO WOUND, THEN WRAPPED WITH KERLEX ROLL GAUZE, THEN SECURED WITH TAPE. PATIENT IN ON VENT AND IS NONRESPONSIVE. PATIENT'S SKIN ON RIGHT FOREARM IS VERY THIN AND FRIABLE DUE TO ATROPHY. WOUND EDGES WERE NOT WELL APPROXIMATED AND THERE WAS SMALL TO MODERATE AMOUNT OF SANGUINOUS DRAINAGE ON OLD DRESSING, NO ACTIVE DRAINAGE AT TIME WOUND CARE WAS ADMINISTERED.
[2017-05-24 18:17] LABS: CALCIUM 6.6 mg/dL (8.5-10.1); CREATININE 3.3 mg/dL (0.6-1.3); MAGNESIUM 1.4 mg/dL (1.8-2.4); POTASSIUM 3.9 mmol/L (3.5-5.1)
--- NOTE | 2017-05-24 19:00 | NUR ---
PT REMIANS ON VENT AND SEDATED, TALKED WITH ALTERNATE DPOA ROMEO SON OF PT. AFTER ALSO TALKING WITH CASE MANAGEMENT INSTRUCTED SON THAT WITH EVERY TIME DAD IS ADMITED DNR ORDERS HAVE TO BE WRITTEN BY . WENT READ OVER DPOA ON CHART AND SHOWED ON THE ADVANCE DIRECTIVE DOES NOT STATE DO NOT RESUSCITATE. DAUGHTER IN ROOM STAING THAT FATHER WAS NEVER ASKED IN ER WHAT HIS CODE STATUS WAS AND ALSO STATED THAT ON ADMISSION THAT HE WAS NEVER ASKED EITHER. PT DAUGHTER DOES NOT REMEMBER WHO ADMITTED PT.REINTERATED THAT PER CASE MANAGEMENT THAT FATHER WAS NOT SURE WHAT HE WANTED HIS CODE STATUS TO BE. PT RUBENTER INSISTING THAT DR AND NURSE DID NOT DO THERE JOB. FURTHER IN THE CONVERSATION DAUGHTER STATED THAT SECRETARY BOOKKEEPER WAS WITH FATHER WHEN ADMITTED TO THE ROOM AND ONCE AGAIN WANTED TO NAME OF ADMITTING NURSE. PT DAUGHTER ALSO STATED DR GODWIN KNOWS FATHER AND SHOULD KNOW THAT HE IS A NO CODE.SHE ALSO SAID DR GODWIN DURING THE CODE SAID THAT HEY HE MAY BE A NO CODE WHEN PT WAS BEING CODED. PT DAUGHTER ADMITTED THAT SHE WAS CALLED WHEN FATHER WAS CODING AND TOLD STAFF THAT SHE WOULD BE RIGHT THERE. DAUGHTER ALSO EXPRESSED THAT SHE DID NOT LIKE THAT CASE MANAGEMENT QUESTIONED HER TO WHY SHE DID NOT TELL STAFF THAT FATHER WAS A NO CODE WHEN CALLED. REINTERATED TO PTS DAUGHTER THAT THERE HAVE BEEN SIMULAR SITUATIONS AND WHEN FAMILY WERE CALLED THAT THEY HAD AT THAT TIME INSTRUCTED STAFF TO STOP CODE. PT DAUGHTER EXPRESSED HER WISHES NOT WANTING TO APPROACHED BY THAT SHRIMP PACKER AGAIN. AT [address] DR HILLIARD IN ROOM WITH ALL 2 SONS AND DAUGHTER AND TOOK A GREAT DEAL OF TIME EXPLAINING PT STATUS AND PROGNOSIS WITH SEVERAL POSSABLE OUTCOMES. ALSO INFORMED PT FAMILY OF NUERO CONSULT IN AM. DAUGHTER APON EXITING PT ROOM AT SHIFT CHANGE STATED THAT SECRETARY BOOKKEEPER STATED THAT FATHER ON SUNDAY NIGHT HAD REQUESTED DNR STATUS. ONCE AGAIN DAUGHTER WANTED TO KNOW WHO THE NURSE WAS THAT ADMITTED FATHER ON TELEMETRY THAT NIGHT. PT ALT DPOA ROMEO STATED THAT WITH HIS SISTER YOU JUST HAVE TO LEAVE IT GO IN ONE EAR AND OUT THE OTHER. DAUGHTER IS NOT LISTED DPOA.
[2017-05-25] VITALS (21 sets, daily range): BP systolic 112–141; BP diastolic 52–75
[2017-05-25 04:52] LABS: ALBUMIN 2.4 g/dL (3.4-5.0); CALCIUM 7.8 mg/dL (8.5-10.1); CREATININE 4.2 mg/dL (0.6-1.3); POTASSIUM 4.4 mmol/L (3.5-5.1); TOTAL BILIRUBIN 0.2 mg/dL (<0.1-1.0); TOTAL PROTEIN 5.6 g/dL (6.4-8.2)
[2017-05-25 07:03] LABS: CALCIUM 7.8 mg/dL (8.5-10.1); MAGNESIUM 2.4 mg/dL (1.8-2.4)
--- NOTE | 2017-05-25 07:35 | NUR ---
PT REMAINS STABLE ON VENTILATOR. VSS. PT BECOMES TACHYPNEIC WITH RR 40'S WITH MINIMAL PHYSICAL STIMULATION, SEDATION TITRATED TO MAX DOSE OF FENTANYL AND VERSED WITH SOME IMPROVEMENT. CALCIUM LEVEL LOW LAST NIGHT, CALLED TO DR HOOKS AND IV REPLACEMENT GIVEN PER HIS ORDER. COMPLETE BED BATH GIVEN. PT HAS BEEN TURNED Q2HR THROUGHOUT THE SHIFT.
--- NOTE | 2017-05-25 18:57 | NUR ---
PT DAUGHTER HERE MOST OF SHIFT. LANETTE JANE DPOSA HERE THIS AFTERNOON. BOTH UPDATED ON PT STATUS. URINE OUT PUT INCREASING WAS 525 THIS SHIFT. NOTED ORDERS FOR TUBE TRIAL IN AM. SHIFT REPORT TO BE GIVEN.
[2017-05-26] VITALS (13 sets, daily range): BP systolic 108–157; BP diastolic 53–84
[2017-05-26 04:58] LABS: HEMATOCRIT 26.3 % (42.0-52.0); HEMOGLOBIN 8.2 gm/dL (14.0-18.0); MCH 19.4 pg (26.0-34.0); MCHC 31.1 g/dL (28.0-37.0); MCV 62.4 fL (80.0-100.0); RBC 4.21 mil/uL (4.50-6.00); RDW-CV 20.9 % (10.5-14.5); WBC 6.6 thou/uL (4.0-11.0)
[2017-05-26 05:13] LABS: ALBUMIN 2.1 g/dL (3.4-5.0); CALCIUM 7.5 mg/dL (8.5-10.1); CREATININE 4.3 mg/dL (0.6-1.3); MAGNESIUM 2.4 mg/dL (1.8-2.4); TOTAL BILIRUBIN 0.2 mg/dL (<0.1-1.0); TOTAL PROTEIN 4.9 g/dL (6.4-8.2)
--- NOTE | 2017-05-26 06:36 | NUR ---
PT PROGRESSING TOWARD GOALS. PT WAS ABLE TO REMAIN CALM DURING THE EVENING SEDATION WAS SLOWLY WEANED. PTS SEDATION WAS TURNED COMPLETELY OFF AT 0500. PT MOVES WITH STIMULATION.
--- NOTE | 2017-05-26 11:01 | NUR ---
RECEIVED PT FROM NIGHT, RN. ASSESSMENT CHARTED. AFEBRILE. PT DID NOT TOLERATE TTT THIS MORNING. PT BECAME TACHY, ELEVATED BP AND INCREASED RR. PT NEEDED TO BE SEDATED AROUND 1100. EEG SCHEDULED TODAY. WILL CONTINUE TO MONITOR.
--- NOTE | 2017-05-26 14:20 | NUR ---
TERESE WAS INFORMED BY NURSING THAT THE PATIENTS FAMILY REQUESTED CM TO DISCUSS CLARIFICATION OF CODE STATUS. CM ATTEMPTED TO SPEAK WITH JERSON (NUBIA) AND HE WAS NOT IN THE ROOM. CM INFORMED NURSING THAT IF THE DPOA RETURNED TO CONTACT CM. CM WILL REMAIN AVAILABLE TO ASSIST AND FOLLOW NEEDED.
[2017-05-27] VITALS (12 sets, daily range): BP systolic 110–164; BP diastolic 55–98
[2017-05-27 03:41] LABS: HEMATOCRIT 27.8 % (42.0-52.0); HEMOGLOBIN 8.6 gm/dL (14.0-18.0); MCH 19.4 pg (26.0-34.0); MCHC 30.9 g/dL (28.0-37.0); MCV 62.8 fL (80.0-100.0); MPV 9.2 fl. (7.2-11.1); NUCLEATED RBCS 0 /100WBC; PLATELET COUNT* 109 thou/uL (150-400); RBC 4.43 mil/uL (4.50-6.00); RDW-CV 21.1 % (10.5-14.5); WBC 7.1 thou/uL (4.0-11.0)
[2017-05-27 03:46] LABS: CALCIUM 7.3 mg/dL (8.5-10.1); CREATININE 4.3 mg/dL (0.6-1.3); POTASSIUM 3.8 mmol/L (3.5-5.1)
[2017-05-27 04:42] LABS: ABSOLUTE LYMPHOCYTES 0.1 thou/uL (0.8-5.3); ABSOLUTE MONOCYTES 0.1 thou/uL (0.0-1.2); ABSOLUTE NEUTROPHILS 6.8 thou/uL (1.6-8.1); ANISOCYTOSIS 2+; MICROCYTES 3+; PLATELET ESTIMATE DECREASED
[2017-05-27 04:43] LABS: HYPOCHROMASIA 2+; OVALOCYTES Occasional; POIKILOCYTOSIS 1+; TEARDROPS Occasional
--- NOTE | 2017-05-27 06:13 | NUR ---
PT. REMAINS SEDATED ON VENTILATOR. FENTANYL AND VERSED GTT'S. PT'S DAUGHTER UPDATED ON PT'S STATUS. WILL CONTINUE TO MONITOR.
--- NOTE | 2017-05-27 09:32 | NUR ---
PATIENT CARE ASSUMED AT 0700. PATIENT SEDATED ON VENTILATOR. VERSED PAUSED AT 0730. FENTANYL PAUSED AT 0800. PULMONARY STATED TO TURN SEDATION OFF AND SEE HOW PATIENT TOLERATES IT, BUT NOT TO TRIAL UNLESS PATIENT TOLERATES BEING OFF SEDATION. AN HOUR AFTER SEDATION PAUSED, PATIENT BECAME EXTREMELY TACHYPNEIC WITH RESPIRATIONS IN 40S AND TACHYCARDIA IN THE LOW 100S. SEDATION TURNED BACK ON. TUBE FEEDINGS RESTARTED. PATIENT'S DAUGTHER, SON, AND SON-IN-LAW PRESENT FOR THIS. EDUCATED ON PLAN OF CARE. AWAITING TO SPEAK WITH NEUROLOGIST TODAY. WILL CONTINUE OBSERVATION AND CURRENT PLAN OF CARE.
--- NOTE | 2017-05-27 10:11 | NUR ---
PATIENT SON LANETTE PRESENT THIS AM WITH DAUGHTER ELBERT. AFTER LANETTE LEFT, HE CALLED NURSING MEDICAL RECORD ADMINISTRATOR TO TALK ABOUT WANTING TO TRANSITION PATIENT TO COMFORT CARE. LANETTE DID NOT SPEAK WITH THIS NURSE ABOUT THIS WHILE HE WAS HERE. ENTERED ROOM TO TALK TO DAUGHTERELBERT ABOUT THIS. STATED THAT A FAMILY CONFERENCE WITH ELBERT GAMA, AND JULIO CESAR (DPOA) MAY BE NEEDED TO COME TO AGREEMENT ON FURTHER PLAN OF CARE. DR ROBERTO NOTIFIED ON THIS.
--- NOTE | 2017-05-27 10:46 | NUR ---
PATIENT'S DAUGHTER VISIBLY UPSET AND CRYING. CONTINUES TO QUESTION THIS NURSE ABOUT "DID THE NURSE WHO ADMITTED HIM MAKE A MISTAKE AND NOT ADRESS HIS CODE STATUS WHEN HE CAME IN?" "DID THE PHYSICIAN DROP THE BALL AND NOT MAKE HIM A DNR WHEN HE CAME IN?" THIS NURSE REFERRED THE DAUGHTER TO PATIENT ADVOCATE TO EXPRESS CONCERNS. DID ASK ELBERT ABOUT PATIENT'S CURRENT CODE STATUS. EDUCATED THAT TWO SONS (DPOAS) ARE ABLE TO MAKE DECISION ABOUT PATIENT'S CURRENT CODE STATUS, BUT IDEALLY THEY WOULD ALL THREE NEED TO COME TO AN AGREEMENT ON DECISION. PATIENT'S DAUGHTER CONTINUED TO BECOME UPSET AND TALK ABOUT EVENT ON SUNDAY. NURSE REINFORCED IMPORTANCE OF NEEDING TO HAVE CORRECT CODE STATUS SO THIS DOES NOT HAPPEN AGAIN. DAUGHTER STATED THAT SONS WILL COME IN TODAY TO HAVE MEETING WITH PHYSICIAN. DAUGHTER STATES "WE CONTINUED WITH FULL CODE STATUS BECAUSE WE BELIEVED DAD WAS GOING THROUGH THIS FOR A REASON, BUT NOW WE ARE LOSING HOPE. IT MAKES ME MAD BECAUSE SOMEONE PUT HIM THROUGH THIS."
--- NOTE | 2017-05-27 17:58 | NUR ---
PATIENT NOT PROGRESSING TOWARDS GOALS. UNABLE TO TURN SEDATION OFF AEB TACHYCARDIA AND EXTREME TACHYPNEA IN THE 40S. REMAINS SEDATED ON VENTILATOR. FAMILY HAS DECIDED TO TRIAL PATIENT TOMORROW AND IF PATIENT DOES NOT DO WELL, TO CONTINUE WITH COMPASSIONATE EXTUBATION. BOTH SONS IN AGREEMENT WITH THIS PLAN THEY ARE DPOA. ALL CONSULTS ON BOARD WITH THIS PLAN.
[2017-05-28] VITALS: BP 148/67
[2017-05-28 02:00] VITALS: BP 159/69
[2017-05-28 04:00] VITALS: BP 149/69
[2017-05-28 05:08] LABS: CALCIUM 7.6 mg/dL (8.5-10.1); CREATININE 4.4 mg/dL (0.6-1.3); POTASSIUM 4.6 mmol/L (3.5-5.1)
[2017-05-28 05:11] LABS: ALBUMIN 2.2 g/dL (3.4-5.0); CALCIUM 7.4 mg/dL (8.5-10.1); CREATININE 4.3 mg/dL (0.6-1.3); POTASSIUM 4.7 mmol/L (3.5-5.1); TOTAL BILIRUBIN 0.2 mg/dL (<0.1-1.0); TOTAL PROTEIN 4.8 g/dL (6.4-8.2)
[2017-05-28 06:00] VITALS: BP 147/62
--- NOTE | 2017-05-28 06:20 | NUR ---
PT REMAINS STABLE ON VENTILATOR. PT BECOMES SEVERELY TACHYPNEIC WITH EVEN MINIMAL PHYSICAL STIMULI, RR MID 40'S DURING ORAL CARE. SEDATION AND TUBE FEED TURNED OFF AT 0500 THIS AM IN PREPARATION FOR WEANING TRIAL, ORDERED TO BE DONE DAILY AT 0900. PT HAS TOLERATED TUBE FEED WITH MAX RESIDUAL OF 20ML @ GOAL RATE OF 20 ML/HR. PT HAS BEEN TURNED Q2HR THROUGHOUT THE SHIFT.
[2017-05-28 08:00] VITALS: BP 136/61
--- NOTE | 2017-05-28 08:30 | NUR ---
FAMILY IN ROOM TUBE TRIAL STARTERD DR POOLE HERE.DPOA SON JULIO CESAR IN ROOM WITH DAUGHTER LADY. FAMILY INTENTIONS ARE TO GO COMFORT CARE AFTER TUBE TRIAL.
--- NOTE | 2017-05-28 09:00 | NUR ---
DAUGHTER UP AT NURSING STATION WOULD LIKE NEURO CALLED TO SEE IF THEY WOULD DO ANOTHER EEG SINCE PT HAS BEEN OFF SEDATION MEDS FOR SEVERAL HOURS, DR ROCA CALLED FROM [facility] EXPLAINED DAUGHTERS REQUEST. AT THIS TIME STATED THAT ANOTHER EEG WOULD NOT BE NECESSARY. SUGGESTED THAT IF THE FAMILY WISHES THAT PT CAN REMAIN OFF SEDATION FOR SEVERAL HOURS TO SEE IF PT WAKES UP BEFORE EXTABATING PT. WENT INTO ROOM TO FAMILY AND REINTERATED WHAT DR ROCA NEUROLOGY HAD STATED. NUBIA HARRELL AT THIS TIME STATED THAT NO HE WISHES TO EXTABATE PT NOW NOT WAIT.
[2017-05-28 09:11] LABS: BE -7.1 mmol/L (-2 to +3); HCO3 18.6 mmol/L (22.0-26.0); PCO2 38.1 mmHg (35.0-45.0); PO2 83.3 mmHg (75.0-100.0); pH 7.306 (7.340-7.450)
--- NOTE | 2017-05-28 09:20 | NUR ---
PT EXTABATED AND PLACED ON 5 LITERS OF 02.
[2017-05-28 10:00] VITALS: BP 152/78
--- NOTE | 2017-05-28 10:30 | NUR ---
DR HILLIARD SPOKE WITH FAMILY THIS MORNING AND THEY DECIDED TO EXTUBATE PT, MAKE PT COMFORT CARE. SPIRITUAL CARE NOTIFIED THAT PT IS NOW COMFORT CARE. CASE MGT WILL CONTINUE TO FOLLOW.
--- NOTE | 2017-05-28 10:45 | NUR ---
DR HILLIARD ON UNIT COMFORT CARE ORDERS OBTAIN PER DPOA WISHES.
--- NOTE | 2017-05-28 13:30 | NUR ---
DAUGHTER REMIANS AT [facility]. PT CONTINUES TO RECIEVE PRN MORPHIN IVP PRN.
--- NOTE | 2017-05-28 14:20 | NUR ---
AWITING INSULIN FROM PHARM, DR SANTIAGO HERE MADE AWARE OF CRITICAL LABS, LAB CALLED PER DR SANTIAGO AND MADE AWARE UNIT BLOOD NEEDED STAT TO OR WHEN ARRIVES. PT TRANSPORTED VIA BED TO OR FOR PROCEDURE.
--- NOTE | 2017-05-28 15:33 | CON ---
[address] [place] [address] CONSULTATION Name: VERONA WILLSON Room: [address] IN M.R.#: [id number] Admission: 05/22/17 Attend Phys: Fanny Stout Discharge: Date of : 31 Report #: [id number] THIS REPORT FOR: //name// CC: Anjel Orozco DATE OF SERVICE: 05/23/2017 REQUESTING PHYSICIAN: Mickey Ignacio M.D. REASON FOR CONSULTATION: Acute kidney injury. HISTORY OF PRESENT ILLNESS: The patient is an 82-year-old gentleman with medical history significant for coronary artery disease, COPD, peripheral artery disease, diabetes mellitus type 2, chronic kidney disease stage 3. He presented to the hospital yesterday with complaints of having some congestion and some cough. So, he was evaluated by Dr. Cheung and was admitted with diagnosis of hypoxic respiratory failure, COPD exacerbation. He was started on IV antibiotics and IV steroids. He was doing better this morning, but when he had respiratory arrest was transfused to the ICU, was resuscitated and his creatinine went up and I was consulted. PAST MEDICAL HISTORY: Significant for diabetes mellitus type 2, COPD, smoking tobacco, chronic kidney disease stage III, hypertension, coronary artery disease, peripheral arterial disease. FAMILY HISTORY: Noncontributory. SOCIAL HISTORY: He continues to smoke tobacco. REVIEW OF SYSTEMS: The patient is intubated and sedated. MEDICATIONS: Reviewed. PHYSICAL EXAMINATION: GENERAL: He is in the Intensive Care Unit, intubated on pressors and getting IV fluids. VITAL SIGNS: His blood pressure 131/37, heart rate 99, afebrile. His temperature is 37.8. His pressure was as low as a 75/40 at 11:30 this morning. HEENT: His pupils are round. NECK: Fatty. LUNGS: Decreased air movements. ABDOMEN: Obese, soft. HEART: Rate is irregular. EXTREMITIES: Lower extremities with trace edema. 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 [address] CONSULTATION Name: VERONA WILLSON Room: [address] IN [facility]#: [id number] Admission: 05/22/17 Attend Phys: Fanny Stout Discharge: Date of : 31 Report #: [id number] LABORATORY DATA: Report revealed serum sodium of 144, potassium 4.4, chloride 104, carbon dioxide 22, BUN 32, creatinine 2.7, blood sugar was 595, troponin is 0.14, albumin 2.5, hemoglobin 10.7, white count 19.0, platelet count 210,000. Urinalysis revealed 3+ protein, 2+ blood, many bacteria and gas. His abdominal x-ray, nonspecific bowel gas, otherwise unremarkable, limited exam due to body habitus. Chest x-ray post intubation fibrotic changes in lung bases, worse on the right. Mild cardiomegaly. ASSESSMENT: An 82-year-old gentleman status post Code Blue ____ kidneys in resultant acute kidney injury with acute tubular necrosis. He is nonoliguric that I think always a good sign. We will continue with IV fluids, pressure support, monitoring his renal function. Other problems include severe COPD, tobacco use, coronary artery disease, peripheral artery disease, hypertension, morbid obesity. I discussed this case with Dr. Ignacio, with the patient's daughter and with ICU nurse. Thank you very much for asking my opinion on acute kidney injury of this patient. <ELECTRONICALLY SIGNED> By: Yolanda Angel MD 05/28/17 1533 [id number] Dover MD /[facility]
--- NOTE | 2017-05-28 17:48 | NUR ---
FAMILY HAS BEEN IN ROOM MOST OF DAY. PT TO BE MOVED TO M/S. M/S TO CALL BACK FOR REPORT.
--- NOTE | 2017-05-28 18:30 | NUR ---
PT TRANSFERED OFF UNIT. OLDEST SON JERSON AND LANETTE HAD TAKEN PERSONAL BELONGINGS HOME.REPORTGIVEN AND THEN UPDATED AT [facility].
--- NOTE | 2017-05-28 18:53 | NUR ---
PATIENT ARRIVED TO UNIT AT 1830. PATIENT IS UNRESPONSIVE WITH FAMILY AT THE BEDSIDE. 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 IJ IS PATENT AND INFUSING. COMFORT CARE MEASURES ARE IN PLACE. FAMILY HAS BEEN ORIENTED TO ROOM. CALL LIGHT IS IN REACH OF FAMILY. NURSING WILL CONTINUE TO MONITOR.
--- NOTE | 2017-05-29 07:48 | NUR ---
PT CONTINUES ON COMFORT CARE, PT REPOSITIONED PER FAMILY REQUEST DURING THE NIGHT PT CONTINUES TO RECEIVE IV MEDICATIONS FOR COMFORT, PT NONRESPONSIVE WITH FAMILY AT BEDSIDE
--- NOTE | 2017-05-29 13:38 | NUR ---
UNABLE TO EVALUATE PT. DUE TO PT. CODING AND THEN ON HOLD. PT. TODAY.
== END 2017-05-29 10:42 | DRG 870 ==
LOC: M.ERS 14:49 → M.2W 16:13 → M.TBA-ER 16:13 → M.2W 18:30 → M.ICU 05-23 10:30 → M.ORTHSURG 05-28 18:35
PROVIDERS: Family Medicine; Internal Medicine; Internal Medicine Infectious Disease; Internal Medicine Nephrology; ADMIT Internal Medicine
PROC: 5A1955Z Respiratory Ventilation, Greater than 96 Consecutive Hours (ICD-10-PCS; principal; 2017-05-23)
PROC: B24BZZ4 Ultrasonography of Heart with Aorta, Transesophageal (ICD-10-PCS; principal; 2017-05-23)
PROC: 0BH17EZ Insertion of Endotracheal Airway into Trachea, Via Natural or Artificial Opening (ICD-10-PCS; principal; 2017-05-23)
PROC: 02HV33Z Insertion of Infusion Device into Superior Vena Cava, Percutaneous Approach (ICD-10-PCS; principal; 2017-05-23)
PROC: 4A00X4Z Measurement of Central Nervous Electrical Activity, External Approach (ICD-10-PCS; 2017-05-26)
DX: A41.9 Sepsis, unspecified organism (principal); R65.21 Severe sepsis with septic shock; G93.41 Metabolic encephalopathy; J69.0 Pneumonitis due to inhalation of food and vomit; N17.0 Acute kidney failure with tubular necrosis; J96.21 Acute and chronic respiratory failure with hypoxia; J96.22 Acute and chronic respiratory failure with hypercapnia; J44.1 Chronic obstructive pulmonary disease with (acute) exacerbation; I69.351 Hemiplegia and hemiparesis following cerebral infarction affecting right dominant side; J84.9 Interstitial pulmonary disease, unspecified; D68.61 Antiphospholipid syndrome; E44.0 Moderate protein-calorie malnutrition; G93.1 Anoxic brain damage, not elsewhere classified; I46.9 Cardiac arrest, cause unspecified; N18.3 Chronic kidney disease, stage 3 (moderate); Z66 Do not resuscitate; I25.10 Atherosclerotic heart disease of native coronary artery without angina pectoris; E83.42 Hypomagnesemia; I12.9 Hypertensive chronic kidney disease with stage 1 through stage 4 chronic kidney disease, or unspecified chronic kidney disease; E11.65 Type 2 diabetes mellitus with hyperglycemia; E11.22 Type 2 diabetes mellitus with diabetic chronic kidney disease; E11.51 Type 2 diabetes mellitus with diabetic peripheral angiopathy without gangrene; I48.91 Unspecified atrial fibrillation; F17.210 Nicotine dependence, cigarettes, uncomplicated; E66.01 Morbid (severe) obesity due to excess calories; Z68.39 Body mass index [BMI] 39.0-39.9, adult; Z86.718 Personal history of other venous thrombosis and embolism; Z95.820 Peripheral vascular angioplasty status with implants and grafts; Z86.711 Personal history of pulmonary embolism; Z99.81 Dependence on supplemental oxygen; Z79.01 Long term (current) use of anticoagulants; Z79.51 Long term (current) use of inhaled steroids; Z79.4 Long term (current) use of insulin; Z79.899 Other long term (current) drug therapy; Z88.1 Allergy status to other antibiotic agents; Z88.8 Allergy status to other drugs, medicaments and biological substances; Z82.5 Family history of asthma and other chronic lower respiratory diseases